=== PATIENT | male | born 1985 | race Two or more races ===

== ENCOUNTER 2022-10-01 19:20 | Emergency (ER) | payer OTHER ==
[~2022-10-01] VITALS: Ht 177.8 cm; Wt 75.0 kg
[2022-10-01] MEDS ORDERED: IBUPROFEN 600 MG TABLET PO ONE (20:30)
[2022-10-01 21:11] LABS: APPEARANCE,URINE CLEAR (CLEAR); BILIRUBIN,URINE NEGATIVE (NEGATIVE); GLUCOSE, URINE (UA) TRACE mg/dL (NEGATIVE); KETONES,URINE NEGATIVE (NEGATIVE); LEUKOCYTE ESTERASE ,URINE LARGE (NEGATIVE); NITRATE,URINE NEGATIVE (NEGATIVE); OCCULT BLOOD,URINE TRACE (NEGATIVE); PROTEIN,URINE TRACE mg/dL (NEGATIVE); SPECIFIC GRAVITIY, URINE 1.026 (1.003-1.030); UROBILINOGEN,URINE <=1.0 mg/dL (<=1.0)
[2022-10-01 21:24] LABS: BACTERIA,URINE Few /HPF (None Seen); SQUAMOUS EPITHELIAL CELL,UR Rare /LPF (None Seen); WBC,URINE 51-100 /HPF (0-5)
[2022-10-01] MEDS ORDERED: LIDOCAINE/PF 1% 2 ML VIAL IM ONE (21:30)
[2022-10-01] MEDS ORDERED: AZITHROMYCIN 500 MG TABLET PO ONE (21:30)
[2022-10-01] MEDS ORDERED: CefTRIAXone SODIUM 1 GM/VIAL IM ONE (21:30)
[2022-10-01 22:19] VITALS: BP 127/70
== END 2022-10-01 22:22 | disposition home or self-care (01) ==
LOC: EMS 19:22
DX: N45.1 Epididymitis (principal)
CPT/HCPCS: 99285; 81001; 87086; 87186; 76870; 87491; 87591; 96372; J0696; J3490; Q9967